=== PATIENT | male | born 1955 | race African-American/Black ===

== ENCOUNTER → 2017-02-16 | Outpatient (CLI) | payer BC ==
[2017-02-16 11:28] LABS: Eosinophils # (auto) 0.2 uL; Hemoglobin 14.6 g/dL (13.5-17.5); Lymphocytes # (auto) 2.7 uL; Lymphocytes % (auto) 29.5 % (10.0-50.0); Monocytes # (auto) 0.6 uL; Neutrophils # (auto) 5.7 uL
[2017-02-16 11:31] LABS: Basophils # (auto) 0 uL; Basophils % (auto) 0.5 % (0.0-2.0); Mean Corpuscular Hemoglobin 24.1 pg (28.0-32.0); Mean Corpuscular Hgb Conc. 35.6 g/dL (32.0-36.0); Mean Corpuscular Volume 67.6 fL (80.0-100.0); Mean Platelet Volume 9.3 fL (6.9-10.8); Monocytes % (auto) 6.2 % (0.0-12.0); Neutrophils % (auto) 61.8 % (37.0-80.0); Platelet Count (auto) 184 10^3/uL (140-450); White Blood Cell 9.1 10^3/uL (4.4-10.8)
[2017-02-16 12:27] LABS: Red Cell Distribution Width 20.6 % (11.8-14.3)
[2017-02-16 12:29] LABS: Anisocytosis Slight; Giant Platelets Few; Microcytosis Moderate; Platelet Estimate Adequate
[2017-02-16 12:30] LABS: Large Platelets FEW; Poikilocytosis Slight; Stomatocytes Few
[2017-02-16 12:44] LABS: BUN/Creatinine Ratio 13.2; Calcium 9.6 mg/dL (8.5-10.1); Potassium 4.1 mmol/L (3.5-5.1)
[2017-02-17 10:10] LABS: Rheumatoid Arthritis Factor 11.4 IU/mL (0.0-13.9)
== END | disposition home or self-care (01) ==
LOC: LAB 10:35
PROVIDERS: ATTEND Physician Assistant
DX: I12.9 Hypertensive chronic kidney disease with stage 1 through stage 4 chronic kidney disease, or unspecified chronic kidney disease (principal); N18.3 Chronic kidney disease, stage 3 (moderate); E55.9 Vitamin D deficiency, unspecified; E78.5 Hyperlipidemia, unspecified; D50.9 Iron deficiency anemia, unspecified; R53.83 Other fatigue; Z82.0 Family history of epilepsy and other diseases of the nervous system; Z79.899 Other long term (current) drug therapy
CPT/HCPCS: 36415; 80048; 80061; 82306; 82728; 83036; 84153; 84403; 85025; 86038; 86431